=== PATIENT | female | born 1990 | race Caucasian/White ===

== ENCOUNTER 2019-09-22 10:26 | Emergency (ER) | payer OTHER ==
[2019-09-22] MEDS ORDERED: ORPHENADRINE 30 MG/ML 2 ML VIAL IVP STA (10:45)
[2019-09-22] MEDS ORDERED: MORPHINE SULFATE 2 MG/ML SYRINGE IVP ONE (10:46)
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
[2019-09-22 10:53] VITALS: BP 129/78; PULSE 78; RESP 18; TEMP 99.9
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
[2019-09-22] MEDS ORDERED: ONDANSETRON 4 MG/2 ML VIAL IVP STA (12:03)
[2019-09-22] MEDS ORDERED: HYDROmorphone 1 MG/ML 1 ML SYRINGE IVP STA (12:03)
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
[2019-09-22 13:15] LABS: ALT 24 U/L (9-52); AST 28 U/L (14-36); African American GFR (CKD) >90 (>60 ml/min/1.73 sqM); Albumin 4.3 g/dL (3.5-5.0); Alkaline Phosphatase 60 U/L (38-126); Anion Gap 10 mmol/L; Basophils # (A) 0.1 k/uL (0-0.2); Basophils % (A) 0 %; Blood Urea Nitrogen 16 mg/dL (7-17); Calcium 9.5 mg/dL (8.4-10.2); Carbon Dioxide 23 mmol/L (22-30); Chloride 105 mmol/L (98-107); Eosinophils # (A) 0.1 k/uL (0-0.7); Eosinophils % (A) 1 %; Glucose 103 mg/dL (74-99); HCT 43.1 % (34.0-46.0); HGB 14.6 gm/dL (11.4-16.0); Lymphocytes # (A) 1.5 k/uL (1.0-4.8); Lymphocytes % (A) 10 %; MCV 91.4 fL (80.0-100.0); Mean Platelet Volume 5.7; Monocytes # (A) 0.4 k/uL (0-1.0); Monocytes % (A) 3 %; Neutrophils # (A) 12.8 k/uL (1.3-7.7); Neutrophils % (A) 86 %; Platelet Count 330 k/uL (150-450); Potassium 4.4 mmol/L (3.5-5.1); RBC 4.72 m/uL (3.80-5.40); Sodium 138 mmol/L (137-145); Total Bilirubin 0.8 mg/dL (0.2-1.3); Total Protein 7.5 g/dL (6.3-8.2); WBC 14.9 k/uL (3.8-10.6)
[2019-09-22 13:21] LABS: Partial Thromboplastin Time 23.5 sec (22.0-30.0)
== END 2019-09-22 15:08 | disposition home or self-care (01) ==
LOC: EC 10:26
DX: S32.019A Unspecified fracture of first lumbar vertebra, initial encounter for closed fracture (principal); S09.90XA Unspecified injury of head, initial encounter; F17.200 Nicotine dependence, unspecified, uncomplicated; V48.6XXA Car passenger injured in noncollision transport accident in traffic accident, initial encounter; Y92.410 Unspecified street and highway as the place of occurrence of the external cause
CPT/HCPCS: 36415; 80053; 85025; 85610; 85730; 72070; 72100; 72125; 72132; 70450; 74177; 99285; 96374; 96375 ×3; J2360; J2405; J2270; J1170; Q9967

== ENCOUNTER → 2019-09-29 | Outpatient (CLI) | payer OTHER ==
--- NOTE | 2019-09-29 16:08 | NM ---
EXAMINATION TYPE: NM bone scan whole body DATE OF EXAM: 09/29/2019 COMPARISON: CT abdomen pelvis and lumbar spine dated 09/22/2019 HISTORY: Thoracic spine pain Delayed whole-body scanning was performed following the injection of 23.0 mCi Tc 99m MDP. Images acq uired 3.5 hours post injection. FINDINGS: There is focal uptake of the L1 vertebral body in addition to uptake of the T11 and T12 vertebral bod ies. There is also focal uptake of the anterior costal cartilaginous junction on the right at rib 7 a nd 8. Mild symmetric uptake of the shoulders from early arthropathy. Asymmetric excretion of the kidneys with excretion on the left greater than right. IMPRESSION: 1. Focal radiotracer uptake at L1 corresponds to the known compression deformity that appears subacut e. 2. Radiotracer uptake at T11 and T12 corresponds to the microtrabecular fractures of the superior end plates at T11 and T12 identified on the CT lumbar spine dated 09/22/2019. 3. Focal uptake within the costochondral junctions of ribs 7 and the right is avid. Consider costocho ndritis or rib fractures.
== END ==
LOC: RADNMMAIN 10:55
PROVIDERS: ATTEND Physical Medicine & Rehabilitation
DX: M43.8X6 Other specified deforming dorsopathies, lumbar region (principal); S22.089A Unspecified fracture of T11-T12 vertebra, initial encounter for closed fracture; R93.7 Abnormal findings on diagnostic imaging of other parts of musculoskeletal system
CPT/HCPCS: 78306; A9503

== ENCOUNTER 2021-01-03 09:07 | Emergency (ER) | payer OTHER ==
[2021-01-03 09:18] VITALS: RESP 18; TEMP 98.5
[2021-01-03] MEDS ORDERED: ONDANSETRON 4 MG/2 ML VIAL IVP STA (09:42)
[2021-01-03] MEDS ORDERED: HYDROmorphone 0.5 MG/0.5 ML SYRINGE IVP STA (09:42)
[2021-01-03] MEDS ORDERED: SODIUM CHLORIDE 0.9% 1,000 ML IV ONE (09:42)
[2021-01-03] MEDS ORDERED: SODIUM CHLORIDE 0.9% 500 ML 500 ML IV ONE (09:42)
[2021-01-03] MEDS ORDERED: ACETAMINOPHEN TAB 325 MG TAB PO STA (09:42)
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
[2021-01-03 09:48] LABS: Basophils % (A) 1 %; Eosinophils # (A) 0.2 k/uL (0-0.7); Eosinophils % (A) 3 %; HCT 40.9 % (34.0-46.0); HGB 13.7 gm/dL (11.4-16.0); Lymphocytes # (A) 1.4 k/uL (1.0-4.8); Lymphocytes % (A) 24 %; MCH 29.2 pg (25.0-35.0); MCHC 33.6 g/dL (31.0-37.0); MCV 86.9 fL (80.0-100.0); Mean Platelet Volume 6.8; Monocytes # (A) 0.3 k/uL (0-1.0); Monocytes % (A) 6 %; Neutrophils # (A) 3.7 k/uL (1.3-7.7); Neutrophils % (A) 63 %; Platelet Count 302 k/uL (150-450); RDW 12.5 % (11.5-15.5); WBC 5.8 k/uL (3.8-10.6)
[2021-01-03 10:00] LABS: ALT 22 U/L (4-34); AST 24 U/L (14-36); African American GFR (CKD) >90 (>60 ml/min/1.73 sqM); Albumin 4.1 g/dL (3.5-5.0); Alkaline Phosphatase 52 U/L (38-126); Amylase 59 U/L (30-110); Anion Gap 10 mmol/L; Blood Urea Nitrogen 8 mg/dL (7-17); Calcium 9.4 mg/dL (8.4-10.2); Carbon Dioxide 27 mmol/L (22-30); Chloride 105 mmol/L (98-107); Glucose 110 mg/dL (74-99); Lipase 34 U/L (23-300); Non-African American GFR(CKD) >90 (>60 ml/min/1.73 sqM); Sodium 142 mmol/L (137-145); Total Bilirubin 0.4 mg/dL (0.2-1.3); Total Protein 7.3 g/dL (6.3-8.2)
[2021-01-03 10:08] LABS: Appearance,Urine Clear (Clear); Bacteria,Urine Rare /hpf; Bilirubin,Urine Negative (Negative); Blood,Urine Large (Negative); Color,Urine Yellow; Glucose,Urine (UA) Negative (Negative); Ketones,Urine Negative (Negative); Leukocyte Esterase,Urine Negative (Negative); Mucus,Urine Occasional /hpf; Nitrite,Urine Negative (Negative); Protein,Urine Negative (Negative); RBC,Urine 6 /hpf (0-5); Specific Gravity,Urine 1.011 (1.001-1.035); Urobilinogen,Urine <2.0 mg/dL (<2.0); WBC,Urine 5 /hpf (0-5)
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
--- NOTE | 2021-01-03 11:05 | XR ---
EXAMINATION TYPE: XR chest 2V DATE OF EXAM: 01/03/2021 COMPARISON: NONE HISTORY: Chest pain TECHNIQUE: Frontal and lateral views of the chest are obtained. FINDINGS: There is no focal air space opacity. No evidence for pneumothorax. No pleural effusion. The cardiac silhouette size is within normal limits. The osseous structures are grossly intact. IMPRESSION: 1. No acute cardiopulmonary process.
[2021-01-03 11:19] VITALS: BP 138/89; PULSE 80
--- NOTE | 2021-01-03 11:44 | CT ---
EXAMINATION TYPE: CT abdomen pelvis w con DATE OF EXAM: 01/03/2021 COMPARISON: 09/22/2019 INDICATION: Abd pain DLP: 915.6 mGycm, Automated exposure control for dose reduction was used. CONTRAST: 100 mL of Isovue 300. Study performed without Oral Contrast TECHNIQUE: Axial images were obtained from above the diaphragm to the pubic rami in the axial plane a t 5 mm thick sections. Reconstructed images are reviewed on the computer in the coronal plane. FINDINGS: Limited CT sections are obtained the lung bases. The lung bases are clear. CT ABDOMEN: Liver: Normal Spleen: Normal Pancreas: Normal Adrenal glands: The adrenal glands are normal. Gallbladder: Normal Kidneys: No masses are evident. No hydronephrosis is present. No cysts are present. Delayed images were obtained through the kidneys, which remain unremarkable. Aorta: Normal Inferior vena cava: Normal. CT PELVIS: Loops of bowel within the abdomen and pelvis are normal. Study is without oral contrast limiting bowel evaluation. Appendix: Normal as visualized. Urinary bladder: Normal. Genitourinary structures: Uterus is normal. Adnexal regions are clear. Very minimal fluid is in the c ul-de-sac which can be physiologic. Osseous structures: No suspicious lytic or sclerotic lesions. Superior endplate compression deformity of L1 is old. Schmorl's node are present T12 and T11. IMPRESSIONS: 1. No suspicious abnormality to account for abdomen pain
== END 2021-01-03 12:20 | disposition home or self-care (01) ==
LOC: EC 09:07
DX: R10.11 Right upper quadrant pain (principal); R11.2 Nausea with vomiting, unspecified; D72.829 Elevated white blood cell count, unspecified; R31.9 Hematuria, unspecified; R10.2 Pelvic and perineal pain; N89.8 Other specified noninflammatory disorders of vagina; R19.7 Diarrhea, unspecified; Z79.899 Other long term (current) drug therapy
CPT/HCPCS: 36415; 80053; 82150; 83605; 83690; 85025; 81001; 81025; 87040; 71046; 76705; 74177; 99284; 96374; 96375; 96361; J2405; J1170; Q9967

== ENCOUNTER 2022-07-05 12:34 | Inpatient (IN) | payer OTHER ==
[2022-07-05] MEDS ORDERED: LIDOCAINE 0.5% (PF) 5 MG/ML (50 ML SDV) SQ PRN (13:46)
[2022-07-05] MEDS ORDERED: METHYLERGONOVINE 0.2 MG/ML 1 ML AMP IM PRN (13:46)
[2022-07-05] MEDS ORDERED: CARBOPROST TROMETHAMINE 250 MCG/ML 1 ML AMP IM PRN (13:46)
[2022-07-05] MEDS ORDERED: TERBUTALINE 1 MG/ML VIAL SQ PRN (13:46)
[2022-07-05] MEDS ORDERED: OXYTOCIN 10 UNIT/ML 1 ML VIAL IM PRN (13:46)
[2022-07-05 14:12] LABS: Basophils % (A) 0 %; Eosinophils % (A) 0 %; HCT 36.7 % (34.0-46.0); HGB 12.1 gm/dL (11.4-16.0); Lymphocytes # (A) 1.4 k/uL (1.0-4.8); Lymphocytes % (A) 10 %; MCH 28.5 pg (25.0-35.0); MCHC 32.9 g/dL (31.0-37.0); MCV 86.4 fL (80.0-100.0); Mean Platelet Volume 7.3; Monocytes # (A) 0.5 k/uL (0-1.0); Monocytes % (A) 3 %; Neutrophils # (A) 12.9 k/uL (1.3-7.7); Neutrophils % (A) 87 %; Platelet Count 338 k/uL (150-450); RBC 4.24 m/uL (3.80-5.40); RDW 13.4 % (11.5-15.5); WBC 14.9 k/uL (3.8-10.6)
[2022-07-05] MEDS: LACTATED RINGERS 1,000 ML IV SCH ×3 (15:05→22:01)
[2022-07-05] MEDS: OXYTOCIN 30 UNITS/500 ML NS 30 UNIT in SALINE 1 500ML.BAG IV SCH (15:06)
[2022-07-05] MEDS: BUTORPHANOL 1 MG/ML 1 ML VIAL IV PRN ×2 (18:12→19:51)
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
--- NOTE | 2022-07-05 20:52 | P.MSEPDOC ---
Presenting Problems - Arrival Data Date of Arrival on Unit: 07/05/22 Time of Arrival on Unit: 12:34 Mode of Transport: Wheelchair - Complaint OB-Reason for Admission/Chief Complaint: Rule Out SROM Comment: SROM for mec fluid at 1110 Medical History - Information : 2 Para: 0 Term: 0 : 0 Abortions: Spontaneous or Elective: 1 Number of Living Children: 0 - Gestational Age Gestational Age by ALEXANDER (wks/days): 39 Weeks and 6 Days Review of Systems - Review of Systems Constitutional: No problems Breast: No problems ENT: No problems Cardiovascular: No problems Respiratory: No problems Gastrointestinal: No problems Genitourinary: No problems Musculoskeletal: No problems Neurological: No problems Skin: No problems Vital Signs - Temperature Temperature: 97.2 F Temperature Source: Temporal Artery Scan - Pulse Pulse Oximetery Pulse Rate: 90 Pulse Assessment Method: Automatic Cuff - Respirations Respiratory Rate: 16 Oxygen Delivery Method: Room Air - Blood Pressure Right Arm Blood Pressure: 130/83 Blood Pressure Mean: 98 Blood Pressure Source: Automatic Cuff Medical Screen Scoring - Cervical Exam Dilation (cm): 1 Effacement (%): 50 Station: -2 Membranes: Ruptured - Uterine Contractions Frequency From (mins): 2 Frequency To (mins): 5 Duration From (seconds): 60 Duration To (seconds): 90 Intensity: Moderate Resting: Soft to palpation - Assessment - Baby A Baseline FHR: 150 Heart Rate - NICHD Category: Category I (Normal) NST: Reactive Physician Notification - Physician Notified Physician Notified Date: 07/05/22 Physician Notified Time: 13:19 Physician: Trinidad Doherty Order Received: Yes - Notification Comment Comment: Dr. Doherty on unit, report given on maternal and status, SROM at 1110 for meconium fluid, cx every 2-5 mins, NST reactive. Pt sees through [facility] and denies any complications with her , pt reports negative GBS. Orders to admit pt for labor, start pitocin if not making cervical change, and pt can have stadol or epidural once making change per protocol Maternal Triage Index - Maternal Triage Index Presenting for scheduled procedure w/no complaint: No - Stat/Priority 1 Stat Priority 1: No - Urgent/Priority 2 Urgent Priority 2: No - Prompt/Priority 3 Prompt Priority 3: No - Non-Urgent/Priority 4 Non-Urgent Priority 4: Yes Criteria Met for Priority 4: 39 6/7 weeks, SROM for mec fluid at 1110, cx 2-5 mins apart Disposition - Disposition OB Disposition: Admit I agree with the RN Medical Screening Exam: Yes Case reviewed; plan agreed upon as documented in EMR&OBIX.: Yes Diagnosis: ENCOUNTER FOR FULL-TERM UNCOMPLICATED DELIVERY
[2022-07-06] MEDS: BUTORPHANOL 1 MG/ML 1 ML VIAL IV PRN (01:08)
[2022-07-06] MEDS: OXYTOCIN 30 UNITS/500 ML NS 30 UNIT in SALINE 1 500ML.BAG IV SCH (01:27)
--- NOTE | 2022-07-06 01:30 | P.PROBDLV ---
Vaginal Delivery Note - . Vaginal Delivery Note: The patient progressed to complete dilation after oxytocin augmentation of labor and epidural anesthesia. Once reaching complete dilation she began pushing. She pushed for approximately an hour and a half and brought infant's head to a crown. With one further push, the infant's head delivered across the perineum followed by the anterior shoulder. She is instructed to stop pushing. Nose and mouth were bulb suctioned at the perineum with one remaining push, the remainder the easily delivered and was placed on mother's abdomen. Cord was clipped and cut and infant was taken to warmer for evaluation. A viable female infant was noted with scores of 7 at 1 minute and 8 at 5 minutes and weight of 8 lbs. 3 oz. At this time placenta was not ready to separate and therefore inspection of the perineum was carried out. A partial third- degree laceration was noted. This area was anesthetized with 1% lidocaine and then sutured with 3-0 and 2-0 Vicryl suture in the usual multilayer fashion. The capsule of the rectal sphincter was brought together in interrupted stitches of 2-0 Vicryl suture. Once the repair was complete, the placenta was still not . At this time the patient was having a lot of pain and was given a dose of Stadol. After this a gloved hand was placed into the vaginal vault and with maternal efforts I was able to free the placenta manually. Placenta was delivered and appeared intact. There were cut a few clots coming out after the placenta. I did express approximately 100 mL of clots after the placenta came out. Uterus firmed up fairly well after oxytocin was opened up and uterine massage was carried out. Bleeding slowed significantly. All sponge counts are correct. Estimated blood loss was approximately 300 mL's. Both mother and are in stable condition at this time.
[2022-07-06] MEDS ORDERED: diphenhydrAMINE 50 MG/ML 1 ML VIAL IVP PRN ×2 (01:37)
[2022-07-06] MEDS ORDERED: diphenhydrAMINE 50 MG CAP PO PRN (01:37)
[2022-07-06] MEDS ORDERED: SIMETHICONE 80 MG CHEWABLE PO PRN (01:37)
[2022-07-06] MEDS ORDERED: ZOLPIDEM 5 MG TAB PO PRN (01:37)
[2022-07-06] MEDS ORDERED: bisacodyL 10 MG SUPP RECTAL PRN (01:37)
[2022-07-06] MEDS ORDERED: LANOLIN CREAM 5 GM TUBE TOPICAL PRN (01:37)
[2022-07-06] MEDS ORDERED: HYDROCORTISONE 2.5% RECTAL CREAM 30 GM TUBE RECTAL PRN (01:37)
[2022-07-06] MEDS ORDERED: BENZOCAINE/MENTHOL SPRAY 1 GM/SPRAY AEROSOL TOPICAL PRN (01:37)
[2022-07-06] MEDS ORDERED: diphenhydrAMINE 25 MG CAP PO PRN (01:37)
[2022-07-06] MEDS ORDERED: OXYTOCIN 30 UNITS/500 ML NS 30 UNIT in SALINE 1 500ML.BAG IV SCH (01:45)
[2022-07-06] MEDS: IBUPROFEN 600 MG TAB PO PRN ×4 (02:09→22:45)
[2022-07-06] MEDS: SENNOSIDES-DOCUSATE SODIUM 1 EACH TAB PO SCH ×2 (08:24→19:55)
[2022-07-06] MEDS: PRENATAL VIT-IRON-FOLIC ACID 1 EACH TABLET PO SCH (08:24)
[2022-07-06] MEDS: CYANOCOBALAMIN 500 MCG TAB PO SCH (08:29)
[2022-07-06 09:48] LABS: Basophils % (A) 0 %; Eosinophils % (A) 0 %; HCT 26.7 % (34.0-46.0); Lymphocytes # (A) 1.4 k/uL (1.0-4.8); Lymphocytes % (A) 7 %; MCH 29.1 pg (25.0-35.0); MCHC 33.2 g/dL (31.0-37.0); MCV 87.6 fL (80.0-100.0); Mean Platelet Volume 7.6; Monocytes # (A) 0.6 k/uL (0-1.0); Monocytes % (A) 3 %; Neutrophils # (A) 18.8 k/uL (1.3-7.7); Neutrophils % (A) 90 %; Platelet Count 273 k/uL (150-450); RBC 3.05 m/uL (3.80-5.40); RDW 13.8 % (11.5-15.5); WBC 20.9 k/uL (3.8-10.6)
[2022-07-06 09:50] LABS: HGB 8.9 gm/dL (11.4-16.0)
[2022-07-06 10:36] VITALS: RESP 18
[2022-07-06] MEDS ORDERED: ROPIVACAINE 100 MG, fentaNYL (PF). 200 MCG in SODIUM CHLORIDE 0.9% 76 ML EPIDURAL ONE (10:50)
[2022-07-06] MEDS: ACETAMINOPHEN TAB 325 MG TAB PO PRN ×2 (13:43→19:54)
[2022-07-07] MEDS: ACETAMINOPHEN TAB 325 MG TAB PO PRN ×2 (01:47→08:28)
[2022-07-07] MEDS: IBUPROFEN 600 MG TAB PO PRN ×2 (04:39→11:05)
[2022-07-07 06:42] LABS: Basophils % (A) 0 %; Eosinophils # (A) 0.1 k/uL (0-0.7); Eosinophils % (A) 1 %; HCT 25.9 % (34.0-46.0); HGB 8.6 gm/dL (11.4-16.0); Lymphocytes # (A) 2.7 k/uL (1.0-4.8); Lymphocytes % (A) 23 %; MCH 29.6 pg (25.0-35.0); MCHC 33.2 g/dL (31.0-37.0); Mean Platelet Volume 7.5; Monocytes # (A) 0.5 k/uL (0-1.0); Monocytes % (A) 4 %; Neutrophils # (A) 8.4 k/uL (1.3-7.7); Neutrophils % (A) 71 %; Platelet Count 247 k/uL (150-450); RBC 2.91 m/uL (3.80-5.40); WBC 11.8 k/uL (3.8-10.6)
--- NOTE | 2022-07-07 08:00 | P.PNOBGVD ---
Subjective - Subjective Patient reports: Reports appetite normal, Reports voiding normally, Reports pain well controlled, Reports ambulating normally : doing well Objective - Latest Vital Signs Latest vital signs: Vital Signs Temp Pulse Resp BP Pulse Ox 07/07/22 04:00 97.7 F 85 18 117/75 99 07/07/22 00:00 97.7 F 100 18 119/80 99 07/06/22 20:00 98.3 F 91 18 109/65 98 07/06/22 16:00 97.7 F 97 18 119/58 98 07/06/22 12:00 98.5 F 101 H 18 145/82 100 07/06/22 08:00 98.1 F 110 H 18 132/84 99 Intake and Output 07/06/22 07/07/22 07/07/22 22:59 06:59 14:59 Other: # Voids 2 2 - Exam Lungs: bilateral: normal Chest: Normal S1, Normal S2 Extremities: Present: normal Abdomen: Present: normal appearance, soft Uterus: Present: normal, firm - Labs Labs: Abnormal Lab Results - Last 24 Hours (Table) 07/06/22 07/07/22 Range/Units 09:02 06:06 WBC 20.9 H 11.8 H (3.8-10.6) k/uL RBC 3.05 L 2.91 L (3.80-5.40) m/uL Hgb 8.9 L D 8.6 L (11.4-16.0) gm/dL Hct 26.7 L 25.9 L (34.0-46.0) % Neutrophils # 18.8 H 8.4 H (1.3-7.7) k/uL Assessment and Plan Assessment: day #1. Patient is resting without complaints and wishes to go home. Patient's repeat CBC shows a hemoglobin to be stable at 8.6. Please see Dr. Doherty delivery note the patient had some bleeding at the time of delivery however this has completely resolved. 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 Plan today is to continue routine care and discharge home later this morning. (1) Normal vaginal delivery Current Visit: Yes Status: Acute Code(s): O80 - ENCOUNTER FOR FULL-TERM UNCOMPLICATED DELIVERY SNOMED Code(s): 23447406
--- NOTE | 2022-07-07 08:07 | P.DS ---
Providers Date of admission: 07/05/22 13:07 Expected date of discharge: 07/07/22 Attending physician: Trinidad Doherty Primary care physician: Stated None - Discharge Diagnosis(es) (1) Normal vaginal delivery Current Visit: Yes Status: Acute Hospital Course: Please see dictated H&P and delivery note per Dr. Doherty. Summary this is a 31-year-old 2 para 0 female 40-0/7 weeks who presented to labor and delivery with complaints of leaking of fluid and labor. Patient did not have care at this facility. Patient subsequently goes on to have a vaginal delivery viable female infant. Please see dictated delivery note. She did have some bleeding and a laceration of the time of delivery. Please see Dr. Williamson delivery note. patient's hemoglobin stabilized at about 8-1/2 and on day #1 she is felt to be stable for discharge home. Patient instructed follow-up with her primary patient care provider on the as scheduled. She's call should any fever, chills, excessive vaginal bleeding, and/or abdominal pain. Procedures: Normal vaginal delivery Patient Condition at Discharge: Good Plan - Discharge Summary New Discharge Prescriptions: New Ibuprofen [Motrin] 600 mg PO Q6HR PRN #30 tab PRN Reason: Mild Pain (Scale 1 To 3) No Action Mdg-Imsi-Wnhqj Acid [-U Capsule (formulary)] 1 cap PO DAILY Cyanocobalamin [Vitamin B-12] 500 mcg PO DAILY Discharge Medication List Cyanocobalamin [Vitamin B-12] 500 mcg PO DAILY 12/06/21 [History] [id number] Acid [-U Capsule (formulary)] 1 cap PO DAILY 12/06/21 [History] Ibuprofen [Motrin] 600 mg PO Q6HR PRN #30 tab 07/07/22 [Rx] Patient Instructions/Handouts: Vaginal Delivery (DC) Activity/Diet/Wound Care/Special Instructions: No intercourse or anything per vagina for 6 weeks. Please contact your primary patient care provider, Dr. Kern, for follow-up this week for care. Please call if any fever, chills, excessive vaginal bleeding, and/or abdominal pain. Discharge Disposition: HOME SELF-CARE
[2022-07-07] MEDS: SENNOSIDES-DOCUSATE SODIUM 1 EACH TAB PO SCH (08:28)
[2022-07-07] MEDS: CYANOCOBALAMIN 500 MCG TAB PO SCH (08:28)
[2022-07-07] MEDS: PRENATAL VIT-IRON-FOLIC ACID 1 EACH TABLET PO SCH (08:29)
[2022-07-07 08:45] VITALS: BP 137/79; PULSE 103; TEMP 98.1
== END 2022-07-07 11:00 | disposition home or self-care (01) | DRG 806 ==
LOC: FBPOP 12:34 → 4FBP 13:07
PROVIDERS: ADMIT Obstetrics & Gynecology; ATTEND Obstetrics & Gynecology
PROC: 10E0XZZ Delivery of Products of Conception, External Approach (ICD-10-PCS; principal; 2022-07-05)
PROC: 10D17Z9 Manual Extraction of Products of Conception, Retained, Via Natural or Artificial Opening (ICD-10-PCS; principal; 2022-07-05)
DX: O77.0 Labor and delivery complicated by meconium in amniotic fluid (principal); O70.21 Third degree perineal laceration during delivery, IIIa; Z37.0 Single live birth; O72.2 Delayed and secondary postpartum hemorrhage; Z3A.39 39 weeks gestation of pregnancy; O99.334 Smoking (tobacco) complicating childbirth; F17.210 Nicotine dependence, cigarettes, uncomplicated; F17.290 Nicotine dependence, other tobacco product, uncomplicated; Z28.310 Unvaccinated for COVID-19; Z79.899 Other long term (current) drug therapy; Z86.16 Personal history of COVID-19; Z87.81 Personal history of (healed) traumatic fracture
CPT/HCPCS: 59025; 85025; 86850; 86900; 86901; 88307; 99203

== ENCOUNTER 2024-06-28 23:02 | Outpatient (CLI) | payer OTHER ==
[2024-06-29 00:38] VITALS: BP 119/58; PULSE 99; RESP 16; TEMP 97.6
--- NOTE | 2024-09-17 10:35 | P.MSEPDOC ---
Presenting Problems - Arrival Data Date of Arrival on Unit: 06/29/24 Time of Arrival on Unit: 23:02 Mode of Transport: Wheelchair - Complaint OB-Reason for Admission/Chief Complaint: Possible Onset of Labor Comment: pt present to triage due to contractions that started around 2 hours ago, pt. rating pain 6/10, pt. appears comfortable and able to talk through contractions Medical History - Information : 2 Para: 1 Term: 0 : 0 Abortions: Spontaneous or Elective: 0 Number of Living Children: 0 - Gestational Age Gestational Age by ALEXANDER (wks/days): 36 Weeks and 1 Days - History Complications: GDM Comment: GDM diet controlled Review of Systems - Review of Systems Constitutional: No problems Breast: No problems ENT: No problems Cardiovascular: No problems Respiratory: No problems Gastrointestinal: No problems Genitourinary: No problems Musculoskeletal: No problems Neurological: No problems Skin: No problems Vital Signs - Temperature Temperature: 97.6 F Temperature Source: Temporal Artery Scan - Pulse Pulse Oximetery Pulse Rate: 99 Pulse Assessment Method: Automatic Cuff - Respirations Respiratory Rate: 16 Oxygen Delivery Method: Room Air O2 Sat by Pulse Oximetry: 97 - Blood Pressure Right Arm Blood Pressure: 119/58 Blood Pressure Mean: 78 Blood Pressure Source: Automatic Cuff Medical Screen Scoring - Cervical Exam Dilation (cm): 0 Membranes: Intact - Uterine Contractions Frequency From (mins): 2 Frequency To (mins): 4 Duration From (seconds): 40 Duration To (seconds): 80 Intensity: Mild Resting: Soft to palpation - Assessment - Baby A Baseline FHR: 125 Heart Rate - NICHD Category: Category I (Normal) NST: Reactive Physician Notification - Physician Notified Physician Notified Date: 06/29/24 Physician Notified Time: 00:16 Physician: Payal Christian New Order Received: Yes - Notification Comment Comment: orders to discharge pt. home, and to follow up with her Dr. ptEmmanuelle states she has an apt. on saturday 06/[address] Atruro Weller Maternal Triage Index - Maternal Triage Index Presenting for scheduled procedure w/no complaint: No - Stat/Priority 1 Stat Priority 1: No - Urgent/Priority 2 Urgent Priority 2: Yes Provider Notified: Payal Christian Provider Notified Time: 00:16 Criteria Met for Priority 2: pt. is 35 and 4 days, contractions every 2-4min, cervix closed, rechecked within an hour- pt. still closed, pt. talking through contractions. Disposition - Disposition OB Disposition: Discharge to home Discharge Date: 06/29/24 Discharge Time: 00:31 I agree with the RN Medical Screening Exam: Yes Case reviewed; plan agreed upon as documented in EMR&OBIX.: Yes Diagnosis: FALSE LABOR BEFORE 37 COMPLETED WEEKS OF GEST, THIRD TRI
== END 2024-06-29 00:31 | disposition home or self-care (01) ==
LOC: FBPOP 23:02
PROVIDERS: ATTEND Obstetrics & Gynecology Obstetrics
CPT/HCPCS: 59025; 99213

== ENCOUNTER 2024-07-17 03:10 | Inpatient (IN) | payer OTHER | END 2024-07-18 14:00 | disposition home or self-care (01) | DRG 560 | LOC: 4FBP 03:10 | PROVIDERS: ADMIT Obstetrics & Gynecology; ATTEND Obstetrics & Gynecology | PROC: 0KQM0ZZ Repair Perineum Muscle, Open Approach (ICD-10-PCS; principal; 2024-07-17) | PROC: 10E0XZZ Delivery of Products of Conception, External Approach (ICD-10-PCS; principal; 2024-07-17) | DX: O24.420 Gestational diabetes mellitus in childbirth, diet controlled (principal); O70.1 Second degree perineal laceration during delivery; Z3A.38 38 weeks gestation of pregnancy; Z37.0 Single live birth ==